=== PATIENT | female | born 1990 | race Caucasian/White ===

== ENCOUNTER 2024-06-17 15:12 | Emergency (ER) | payer OTHER ==
[~2024-06-17] VITALS: Ht 149.9 cm; Wt 61.2 kg
[2024-06-17 15:42] LABS: SARS-CoV-2, RNA, NAAT NEGATIVE SARS CoV-2 (NEGATIVE)
[2024-06-17 15:49] LABS: INFLUENZA TYPE A Negative For Type A (NEGATIVE); INFLUENZA TYPE B Negative For Type B (NEGATIVE)
[2024-06-17] MEDS ORDERED: AMOX1TAB16 PO (15:56)
[2024-06-17] MEDS ORDERED: METH4TAB3 PO (15:56)
[2024-06-17] MEDS: dexaMETHasone SOD PHOSPHATE 4 MG/ML 1ML VIAL IM ONE (16:06)
[2024-06-17] MEDS: acetaMINOPHEN 500 MG TABLET PO ONE (16:07)
[2024-06-17 16:10] VITALS: BP 121/76; PULSE 82; RESP 16; TEMP 98.2; O2SAT 99
== END 2024-06-17 16:31 | disposition home or self-care (01) ==
LOC: EDH 15:12
DX: J03.00 Acute streptococcal tonsillitis, unspecified (principal); Z20.822 Contact with and (suspected) exposure to COVID-19; Z98.82 Breast implant status
CPT/HCPCS: 99283; 87635; 87880; 87804 ×2; 96372; J1100